=== PATIENT | female | born 1985 | race African-American/Black ===

== ENCOUNTER 2023-10-05 10:19 | Emergency (ER) | payer BC, SELFPAY ==
--- NOTE | ~2023-10-05 | US_ITS ---
EXAMINATION: US OB <= 14 weeks fetus DATE: 10/05/2023 11:59 INDICATION: Right pelvic pain. TECHNIQUE: Real-time transabdominal pelvic ultrasound was performed. COMPARISON: None. FINDINGS: The uterus measures 10.5 x 5.6 x 6.6 cm. There is an intrauterine gestational sac. A yolk sac is iden tified. The crown rump length measures 5 mm, which correlates with an estimated gestational ag e of 6 weeks and 1 day(s) (+/-) 4 day(s). heart motion is identified measuring 117 beats per mi nute (bpm) by M-mode Doppler. The right ovary measures 3.1 x 2.5 x 2.2 cm. There is vascular flow in right ovary. The left ovary is not visualized. There is physiologic free fluid in the pelvis. IMPRESSION: 1. Single living intrauterine gestation with estimated date of delivery 05/29/2024. 2. Normal right ovary. Reviewed, dictated and finalized at location A. IMPRESSION: 1. Single living intrauterine gestation with estimated date of delivery 025. 2. Normal right ovary.
[2023-10-05 10:22] VITALS: BP 147/81; PULSE 108; RESP 16; TEMP 36.5; O2SAT 100
--- NOTE | 2023-10-05 10:43 | ED.FEMALEGU ---
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 Patient states that she is currently , last menstrual cycle was on the 24 of August. This is the patient's 7th . Patient has 3 living kids, had had 1 ectopic, 1 miscarriage and 1 stillborn. Patient admits that the is worse in her right lower quadrant and radiates back to her right flank/lower back region. She denies any urinary symptoms including dysuria or hematuria. Patient denies any vaginal bleeding or spotting. Patient has had her left fallopian tube removed. She denies any additional symptoms or concerns at this time. Related Data Allergies Allergy/AdvReac Type Severity Reaction Status Date / Time No Known Allergies Allergy Verified 10/05/23 10:20 Review of Systems Review of Systems: All systems are reviewed and are negative unless stated otherwise in the HPI. Exam Narrative: General: Alert, awake, afebrile, in no acute distress. HEENT: PERRL, no rhinorrhea, no post nasal drip, oropharynx clear. Cardiovascular: Regular rate and rhythm, no murmurs, rubs or gallops, no peripheral edema. Respiratory: Clear to auscultation bilaterally, no tachypnea, no wheezing, no rhonchi, no rubs, no respiratory distress. Abdomen: Soft, nontender, nondistended, no rebound, no guarding, no peritoneal signs. Musculoskeletal: No joint swelling or deformity, normal muscle tone. Skin: No rashes or petechia, no signs of infection. Neurological: Alert and oriented to person, place, and time. Follows all commands. No focal deficits, speech is clear and fluent. Course Vital Signs Vital signs: Vital Signs Temperature 97.7 F 10/05/23 10:22 Pulse Rate 108 H 10/05/23 10:22 Respiratory Rate 16 10/05/23 10:22 Blood Pressure 147/81 H 10/05/23 10:22 Pulse Oximetry 100 10/05/23 10:22 Oxygen Delivery Room Air 10/05/23 10:22 Temperature 97.7 F 10/05/23 10:22 Pulse Rate 108 H 10/05/23 10:22 Respiratory Rate 16 10/05/23 10:22 Blood Pressure 147/81 H 10/05/23 10:22 Pulse Oximetry 100 10/05/23 10:22 Oxygen Delivery Room Air 10/05/23 10:22 MDM - Female Genitourinary MDM Narrative Medical decision making narrative: The patient was evaluated by myself in the emergency department. History is obtained from patient who is an independent historian and physical exam was performed. External medical records were reviewed at this time. IV was established and pertinent tests were ordered. Laboratory results obtained revealing no acute process. Urinalysis revealed 1+ bacteriuria. Imaging studies obtained included pelvic ultrasound with transvaginal which was independently interpreted by me revealing single living intrauterine gestation with estimated date of delivery 05/29/2024, which is pending final radiology interpretation. Differential diagnosis considerations include ectopic , urinary tract infection and threatened miscarriage. Comorbidities impacting this visit include history of ectopic . I have evaluated and discussed social determinants of health with the patient that could potentially impact subsequent diagnosis and treatment plans. On repeat assessment of the patient, reevaluation revealed that the patient is doing well and is in no acute distress. Patient symptoms have remained stable since she arrived to our emergency department. Repeat vital signs were all reviewed and noted to be stable. Differential diagnosis and treatment plan were discussed with the patient at bedside. Patient agrees with discussion and after shared medical decision making agrees with discharge. All questions were answered to the patient's satisfaction. Patient will follow up with her OBGYN in 3
[2023-10-05 10:58] LABS: Appearance Urine Cloudy (Clear); Bacteria Urine 1+ /hpf; Bilirubin Urine Negative (Negative); Blood Urine Negative (Negative); Color Urine Yellow (Yellow); Glucose Urine UA Negative (Negative); Ketones Urine Negative (Negative); Leukocyte Esterase Ur 1+ LEU/UL (Negative); Nitrate Urine Negative (Negative); Non Pathogenic Casts 0-2; Protein Urine Negative (Negative); RBC Urine 0-2 /hpf (0-2); Specific Grav Ur 1.024 (1.001-1.035); Squamous Epithelial Cell Urine Occasional /hpf (Few); pH Urine 5.5 (5.0-9.0)
[2023-10-05 11:07] LABS: Basophils Percent Auto 0.4 % (0.2-1.2); Eosinophils Absolute Auto 0.5 K/mm3 (0-0.3); Eosinophils Percent Auto 6.1 % (0-4.4); Hematocrit 38.4 % (37.0-47.0); Hemoglobin 12.7 g/dL (12.0-15.0); Immature Granulocyte Absolute 0.04 K/mm3 (0.00-0.031); Immature Granulocyte Percent A 0.5 % (0-0.5); Lymphocytes Absolute Auto 2.32 K/mm3 (0.9-3.2); Lymphocytes Percent Auto 30.1 % (18.3-44.2); Mean Corpuscular HGB Conc 33.1 g/dl (32-36); Mean Corpuscular Hemoglobin 28.7 pg (26-34); Mean Corpuscular Volume 86.9 fl (80-100); Mean Platelet Volume 8.9 fl (7.4-10.4); Monocytes Absolute Auto 0.5 K/mm3 (0.1-0.6); Monocytes Percent Auto 5.8 % (2.6-8.5); Neutrophils Absolute Auto 4.4 K/mm3 (1.3-6.7); Neutrophils Percent Auto 57.1 % (45.5-73.1); Platelet Count Result 393 k/mm3 (150-375); Red Blood Count 4.42 M/mm3 (4.2-5.4); Red Cell Distribution Width 14.7 % (11.5-14.5); White Blood Count 7.7 K/mm3 (4.5-10.0)
[2023-10-05 11:18] LABS: Add Urine Microscopic? YES
[2023-10-05 11:18] LABS: Alanine Aminotransferase 12 U/L (6-35); Albumin Level 4.2 g/dL (3.5-5.1); Alkaline Phosphatase 52 U/L (38-126); Anion Gap 8 mmol/L (4-12); Aspartate Amino Transferase 22 U/L (14-36); Bilirubin,Total 0.4 mg/dL (0.2-1.3); Blood Urea Nitrogen 9 mg/dL (7-17); Calcium 9.1 mg/dL (8.4-10.2); Carbon Dioxide 22 mmol/L (22-30); Chloride 106 mmol/L (98-107); Estimated CRCL calculation 104 ml/min; Estimated Glomerular Filt Rate > 60; Glucose 94 mg/dL (65-110); Potassium 3.5 mmol/L (3.4-5.0); Sodium 136 mmol/L (137-145)
[2023-10-05 12:32] VITALS: BP 130/80; PULSE 84; RESP 16; O2SAT 98
== END 2023-10-05 12:32 | disposition home or self-care (01) ==
PROVIDERS: Emergency Provider Emergency Medicine; PCP Physician Assistant
DX: O26.891 Other specified pregnancy related conditions, first trimester (principal); R10.2 Pelvic and perineal pain; Z90.79 Acquired absence of other genital organ(s); Z3A.01 Less than 8 weeks gestation of pregnancy
CPT/HCPCS: 36415; 76801; 80053; 81001; 84702; 85025; 87077; 87086; 87088; 99284